=== PATIENT | female | born 1970 | race Two or more races ===

== ENCOUNTER 2020-01-10 11:37 | Outpatient (CLI) | payer OTHER | END 2020-01-10 11:55 | disposition home or self-care (01) | LOC: MAMO-SONO 11:37 | PROVIDERS: ATTEND Obstetrics & Gynecology | DX: Z12.31 Encounter for screening mammogram for malignant neoplasm of breast (principal); N64.59 Other signs and symptoms in breast; N60.09 Solitary cyst of unspecified breast; N60.19 Diffuse cystic mastopathy of unspecified breast; N76.0 Acute vaginitis ==

== ENCOUNTER 2021-08-11 10:58 | Outpatient (CLI) | payer OTHER | END 2021-08-11 11:00 | disposition home or self-care (01) | LOC: RAD 10:58 | DX: M99.01 Segmental and somatic dysfunction of cervical region (principal); M99.02 Segmental and somatic dysfunction of thoracic region; M99.03 Segmental and somatic dysfunction of lumbar region; M99.04 Segmental and somatic dysfunction of sacral region; M99.05 Segmental and somatic dysfunction of pelvic region ==

== ENCOUNTER 2021-09-16 11:02 | Emergency (ER) | payer OTHER ==
[~2021-09-16] VITALS: Ht 157.5 cm; Wt 62.6 kg
[2021-09-16] MEDS ORDERED: DICLOFENAC POTA50 MG PO (16:59)
[2021-09-16] MEDS ORDERED: ORPHENADRINE C100 MG PO (16:59)
[2021-09-16] MEDS ORDERED: [UNRECOGNIZED DRUG - SUPPLY] (17:01)
== END 2021-09-16 17:07 ==
LOC: ER 11:02
DX: S93.602A Unspecified sprain of left foot, initial encounter (principal); X50.1XXA Overexertion from prolonged static or awkward postures, initial encounter; Y93.9 Activity, unspecified; Y92.019 Unspecified place in single-family (private) house as the place of occurrence of the external cause

== ENCOUNTER 2022-03-30 10:29 | Emergency (ER) | payer OTHER ==
[~2022-03-30] VITALS: Ht 157.5 cm; Wt 63.5 kg
[~2022-03-30 10:29] MED LIST: DICLOFENAC POTA50 MG PO; ORPHENADRINE C100 MG PO; [UNRECOGNIZED DRUG - SUPPLY]
[2022-03-30] MEDS ORDERED: BUTALB-ASPIRIN1 EACH PO (15:58)
== END 2022-03-30 16:05 | disposition home or self-care (01) ==
LOC: ER 10:29
DX: G43.909 Migraine, unspecified, not intractable, without status migrainosus (principal)

== ENCOUNTER 2022-04-02 09:15 | Outpatient (CLI) | payer OTHER ==
[~2022-04-02 09:15] MED LIST changes: +BUTALB-ASPIRIN1 EACH PO
== END 2022-04-02 09:24 | disposition home or self-care (01) ==
LOC: TOM 09:15
PROVIDERS: ATTEND Internal Medicine
DX: K52.9 Noninfective gastroenteritis and colitis, unspecified (principal)

== ENCOUNTER 2023-07-22 10:19 | Outpatient (CLI) | payer OTHER | END 2023-07-22 10:40 | disposition home or self-care (01) | LOC: MAMO-SONO 10:19 | PROVIDERS: ATTEND Obstetrics & Gynecology | DX: N60.11 Diffuse cystic mastopathy of right breast (principal); N60.12 Diffuse cystic mastopathy of left breast; Z12.39 Encounter for other screening for malignant neoplasm of breast; Z12.31 Encounter for screening mammogram for malignant neoplasm of breast; E03.9 Hypothyroidism, unspecified ==

== ENCOUNTER 2024-07-16 11:31 | Outpatient (CLI) | payer OTHER | END 2024-07-16 11:42 | disposition home or self-care (01) | LOC: RAD 11:31 | DX: R07.9 Chest pain, unspecified (principal) ==